=== PATIENT | female | born 1960 | race Two or more races ===

== ENCOUNTER 2021-10-24 22:34 | Inpatient (IN) | payer MEDICAID ==
[~2021-10-24] VITALS: Ht 152.4 cm; Wt 93.0 kg
[2021-10-24] MEDS ORDERED: PIPERACILLIN/TAZOBACTAM 3.375GM/50ML PREMIX IV ONE (23:15)
[2021-10-24] MEDS ORDERED: PIPERACILLIN/TAZ 3.375G PREMIX 50 ML IV NR (23:15)
[2021-10-25 00:14] LABS: HEMATOCRIT 35.5 % (36.0-48.0); HEMOGLOBIN 11.9 g/dL (12.0-16.0); MEAN CORPUSCULAR HEMOGLOBIN 27.9 pg (28.0-32.0); PLATELET 387 x1000/uL (130-400); RED BLOOD CELL COUNT 4.28 mill/uL (4.2-5.4); RED CELL DISTRIBUTION WIDTH 13.9 % (11.6-14.6)
[2021-10-25 00:38] LABS: CHLORIDE 107 mEq/L (98-107)
[2021-10-25] MEDS ORDERED: IOHEXOL-300 100 ML BOTTLE ONE (02:04)
[2021-10-25] MEDS ORDERED: MAGNESIUM HYDROXIDE 400MG/5ML 30ML UDC PO PRN (08:15)
[2021-10-25] MEDS ORDERED: ACETAMINOPHEN 325MG TABLET PO PRN ×2 (08:15)
[2021-10-25] MEDS ORDERED: PIPERACILLIN/TAZ 3.375G PREMIX 50 ML IV SCH (08:15)
[2021-10-25] MEDS ORDERED: ONDANSETRON HCL 4MG/2ML INJ IV PRN (08:15)
[2021-10-25] MEDS ORDERED: DIPHENHYDRAMINE 50MG/ML VIAL IV PRN (08:15)
[2021-10-25] MEDS ORDERED: POTASSIUM CHLORIDE 20MEQ TABLET SR PO ONE (08:15)
[2021-10-25] MEDS ORDERED: MAGNESIUM/ALUMINUM HYDROXIDE/SIMETHICONE 30ML UDC PO PRN (08:15)
[2021-10-25] MEDS ORDERED: CLONIDINE 0.1MG TABLET PO PRN (08:15)
[2021-10-25] MEDS ORDERED: DEXTROSE 50% WATER 50ML SYRINGE IV PRN (08:15)
[2021-10-25] MEDS ORDERED: NALOXONE HCL 0.4MG/ML VIAL IV PRN (08:30)
[2021-10-25] MEDS ORDERED: VANCOMYCIN 1 G PREMIX 200 ML IV SCH ×2 (09:00→23:00)
[2021-10-25 09:30] VITALS: BP 139/60
[2021-10-25] MEDS: DOCUSATE SODIUM 100MG CAPSULE PO SCH ×2 (09:58→16:17)
[2021-10-25] MEDS: OMEPRAZOLE 20MG CAPSULE EXTENDED RELEASE PO SCH ×2 (09:59→21:45)
[2021-10-25] MEDS ORDERED: VANCOMYCIN 1500MG in DEXTROSE 5% WATER 250ML IV SCH ×2 (10:00→14:00)
[2021-10-25 10:58] VITALS: BP 139/60
[2021-10-25] MEDS: BLOOD SUGAR DIAGNOSTIC STRIP TEST SCH ×3 (11:27→21:00)
[2021-10-25] MEDS ORDERED: ASPI-1497 PO (11:55)
[2021-10-25] MEDS ORDERED: MEMA10TA55 PO (11:55)
[2021-10-25] MEDS ORDERED: ATOR20TA65 PO (11:55)
[2021-10-25] MEDS ORDERED: SERT-112 PO (11:55)
[2021-10-25] MEDS ORDERED: METO-385 PO (11:55)
[2021-10-25] MEDS ORDERED: AMLO10TA80 PO (11:55)
[2021-10-25] MEDS ORDERED: LOSA1TAB34 PO (11:55)
[2021-10-25] MEDS ORDERED: INSU100I28 SQ (11:55)
[2021-10-25] MEDS ORDERED: TOPUD PO (11:55)
[2021-10-25] MEDS ORDERED: ALOG12.5 PO (11:55)
[2021-10-25] MEDS ORDERED: FURO20TA4 PO (11:55)
[2021-10-25 12:00] VITALS: BP 128/55
[2021-10-25] MEDS: PIPERACILLIN/TAZOBACTAM 3.375G in DEXT 5% WATER 50ML IV SCH ×3 (12:12→21:52)
[2021-10-25] MEDS: INSULIN LISPRO 100 UNITS/ML SUBCUT SCH ×3 (13:42→22:10)
[2021-10-25] MEDS: SODIUM CHLORIDE 0.9% INJ 3ML FLUSH IVF SCH ×2 (13:59→22:22)
[2021-10-25 16:00] VITALS: BP 140/68
[2021-10-25 20:00] VITALS: BP_SYST 132; BP_SYST 97; BP_DIAS 51; BP_DIAS 67
[2021-10-26] VITALS: BP 132/65
[2021-10-26 04:00] VITALS: BP 116/54
[2021-10-26] MEDS: PIPERACILLIN/TAZOBACTAM 3.375G in DEXT 5% WATER 50ML IV SCH ×2 (06:00→15:50)
[2021-10-26] MEDS: SODIUM CHLORIDE 0.9% INJ 3ML FLUSH IVF SCH ×3 (06:20→21:45)
[2021-10-26 06:36] LABS: BASOPHILS % 0.4 % (0.0-2.0); EOSINOPHILS % 13.9 % (0.0-5.0); HEMATOCRIT. 35.6 % (36.0-48.0); HEMOGLOBIN. 11.9 g/dL (12.0-16.0); LYMPHOCYTES % 22.1 % (20.0-50.0); MEAN CORPUSCULAR HEMOGLOBIN 27.6 pg (28.0-32.0); MEAN CORPUSCULAR VOLUME 82.9 fL (81.0-99.0); MEAN PLATELET VOLUME 7.3 fl (7.4-10.4); NEUTROPHILS % 56.6 % (40.0-76.0); PLATELET 358 x1000/uL (130-400); RED BLOOD CELL COUNT 4.29 mill/uL (4.2-5.4); RED CELL DISTRIBUTION WIDTH 13.8 % (11.6-14.6)
[2021-10-26 07:09] LABS: CHLORIDE 107 mEq/L (98-107)
[2021-10-26] MEDS: BLOOD SUGAR DIAGNOSTIC STRIP TEST SCH ×4 (07:20→21:00)
[2021-10-26] MEDS: INSULIN LISPRO 100 UNITS/ML SUBCUT SCH ×4 (07:50→21:46)
[2021-10-26 08:00] VITALS: BP 119/54
[2021-10-26] MEDS: OMEPRAZOLE 20MG CAPSULE EXTENDED RELEASE PO SCH ×2 (08:34→21:46)
[2021-10-26] MEDS: DOCUSATE SODIUM 100MG CAPSULE PO SCH ×2 (08:34→18:28)
[2021-10-26 12:00] VITALS: BP 114/50
[2021-10-26 16:00] VITALS: BP 129/60
[2021-10-26 20:00] VITALS: BP 127/59
[2021-10-26] MEDS: VANCOMYCIN 750 MG PREMIX 150 ML IV SCH (21:44)
[2021-10-27] VITALS (7 sets, daily range): BP systolic 122–139; BP diastolic 51–78
[2021-10-27] MEDS: PIPERACILLIN/TAZOBACTAM 3.375G in DEXT 5% WATER 50ML IV SCH ×3 (00:02→13:26)
[2021-10-27] MEDS: HYDROCODONE/ACETAMINOPHEN 10/325MG TABLET PO PRN ×3 (00:16→17:21)
[2021-10-27] MEDS: BLOOD SUGAR DIAGNOSTIC STRIP TEST SCH ×3 (06:21→17:14)
[2021-10-27] MEDS: SODIUM CHLORIDE 0.9% INJ 3ML FLUSH IVF SCH ×2 (06:21→13:26)
[2021-10-27] MEDS: OMEPRAZOLE 20MG CAPSULE EXTENDED RELEASE PO SCH (06:21)
[2021-10-27 07:39] LABS: CHLORIDE 106 mEq/L (98-107)
[2021-10-27] MEDS: INSULIN LISPRO 100 UNITS/ML SUBCUT SCH ×3 (08:45→17:22)
[2021-10-27] MEDS: DOCUSATE SODIUM 100MG CAPSULE PO SCH ×2 (08:50→17:14)
[2021-10-27] MEDS: VANCOMYCIN 750 MG PREMIX 150 ML IV SCH (09:20)
[2021-10-27] MEDS ORDERED: POTASSIUM CHLORIDE 20MEQ TABLET SR PO NR (13:15)
[2021-10-27] MEDS ORDERED: VANCOMYCIN 750 MG PREMIX 150 ML IV SCH (14:00)
== END 2021-10-27 18:23 | disposition home or self-care (01) | DRG 813 ==
LOC: ER 22:34 → MICUSO 10-25 03:21 → 6EST 10-25 09:11
PROVIDERS: ADMIT Internal Medicine; ATTEND Internal Medicine
DX: T81.31XA Disruption of external operation (surgical) wound, not elsewhere classified, initial encounter (principal); I69.351 Hemiplegia and hemiparesis following cerebral infarction affecting right dominant side; L76.32 Postprocedural hematoma of skin and subcutaneous tissue following other procedure; E11.9 Type 2 diabetes mellitus without complications; E66.9 Obesity, unspecified; E78.00 Pure hypercholesterolemia, unspecified; I10 Essential (primary) hypertension; F32.A Depression, unspecified; Y83.8 Other surgical procedures as the cause of abnormal reaction of the patient, or of later complication, without mention of misadventure at the time of the procedure; E87.6 Hypokalemia; Z90.49 Acquired absence of other specified parts of digestive tract; Y92.89 Other specified places as the place of occurrence of the external cause; Z79.82 Long term (current) use of aspirin; Z79.84 Long term (current) use of oral hypoglycemic drugs; Z79.899 Other long term (current) drug therapy; Z68.41 Body mass index [BMI] 40.0-44.9, adult
CPT/HCPCS: 36415; 74177; 80048; 80053; 80076; 80202; 82962; 83605; 83735; 84145; 85025; 85027; 86850; 86900; 99285; J1815; J2543; J3370; J7060; Q9967